=== PATIENT | female | born 1940 | race African-American/Black ===

== ENCOUNTER → 2017-12-25 | Outpatient (CLI) | payer MEDICARE, MEDICAID | END | disposition home or self-care (01) | LOC: US 08:44 | PROVIDERS: ATTEND Internal Medicine Gastroenterology | DX: N28.1 Cyst of kidney, acquired (principal); K74.69 Other cirrhosis of liver; B19.20 Unspecified viral hepatitis C without hepatic coma | CPT/HCPCS: 76700 ==

== ENCOUNTER → 2019-04-07 | Outpatient (CLI) | payer MEDICARE, MEDICAID | END | disposition home or self-care (01) | LOC: US 08:30 | PROVIDERS: ATTEND Internal Medicine Gastroenterology | DX: K74.69 Other cirrhosis of liver (principal); N28.1 Cyst of kidney, acquired | CPT/HCPCS: 76700 ==